=== PATIENT | male | born 2000 | race Caucasian/White ===

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

== ENCOUNTER 2022-08-09 23:13 | Emergency (ER) | payer MEDICAID ==
[2022-08-09] MEDS ORDERED: XYLOCAINE 1% HCL 20 ML MDV IJ ONE (23:14)
[2022-08-10 00:55] VITALS: O2SAT 98
[2022-08-10] MEDS ORDERED: TORAdol 30 mg Injection IM ONE (01:04)
[2022-08-10] MEDS ORDERED: Rocephin 1000 MG INJ IM ONE (01:06)
[2022-08-10] MEDS ORDERED: TORAdol 30 mg Injection ONE (01:06)
[2022-08-10] MEDS ORDERED: Rocephin 1000 MG INJ ONE (01:06)
--- NOTE | 2022-08-10 01:10 | ERPHSYRPT ---
- History of Present Illness Source: patient Exam Limitations: no limitations Patient Subjective Stated Complaint: pt states he woke up at 0400 yesterday wth throbbing left ear pain. has steadily gotten worse Triage Nursing Assessment: pt is alert and oriented, able to answer questions appropriatly, states he is havign triouble hearing out of left ear due to swelling. Physician History: 22 yo M w L otalgia since 4AM. Pain is severe. He denies trauma/fever/coryza/cough/N/V/diarrhea. Timing/Duration: abrupt onset ENT Location: ear (L) Prearrival Treatment: no prearrival treatment Modifying Factors: Improves With: nothing Associated Symptoms: denies symptoms, ear pain (L) Allergies/Adverse Reactions: No Known Drug Allergies Allergy (Verified 02/26/18 19:41) Hx Tetanus, Diphtheria Vaccination/Date Given: Yes Hx Influenza Vaccination/Date Given: No Hx Pneumococcal Vaccination/Date Given: No Travel Risk - International Travel Have you traveled outside of the country in past 3 weeks: No - Coronavirus Screening Are you exhibiting any of the following symptoms?: No Close contact with a COVID-19 positive Pt in past 14-21 Days: No - Vaccine Status Have you recieved a Covid-19 vaccination: No - Review of Systems Constitutional: No Symptoms Eyes: No Symptoms Ears, Nose, & Throat: No Symptoms, Ear Pain Respiratory: No Symptoms Cardiac: No Symptoms Abdominal/Gastrointestinal: No Symptoms Genitourinary Symptoms: No Symptoms Musculoskeletal: No Symptoms Skin: No Symptoms Neurological: No Symptoms Psychological: No Symptoms Endocrine: No Symptoms Hematologic/Lymphatic: No Symptoms Immunological/Allergic: No Symptoms - Past Medical History Pertinent Past Medical History: No - Past Surgical History Past Surgical History: Yes - Social History Smoking Status: Never smoker Exposure to second hand smoke: No Drug Use: none Patient Lives Alone: No - Nursing Vital Signs Nursing Vital Signs: Initial Vital Signs Temperature 98.7 F 08/10/22 00:48 Pulse Rate 85 08/10/22 00:48 Respiratory Rate 18 08/10/22 00:48 Blood Pressure 167/101 08/10/22 00:48 O2 Sat by Pulse Oximetry 98 08/10/22 00:48 Pain Scale Pain Intensity 9 Hypertensive - Physical Exam General Appearance: no apparent distress Eye Exam: bilateral eye: normal inspection, PERRL, EOMI Ear Exam: left ear: swelling ([place] edematous and erythematous), TM red Nasal Exam: normal inspection Throat Exam: normal, pharynx normal Neck Exam: normal inspection, non-tender, supple, full range of motion, trachea midline, No Brudzinski's sign, No Kernig's sign Cardiovascular/Respiratory Exam: normal breath sounds, regular rate/rhythm, heart sounds normal Abdominal Exam: non-tender, soft Neurologic Exam: alert, oriented x 3, cooperative, structural draftsman II-XII nml as tested, normal mood/affect, nml cerebellar function, nml station & gait, sensation nml Skin Exam: normal color, warm, dry SpO2 Interpretation: normal SpO2: 98 O2 Delivery: Room Air - Course Nursing assessment & vital signs reviewed: Yes Ordered Tests: Medication Summary Discontinued Medications Generic Name Dose Route Start Last Admin Trade Name Davidq PRN Reason Stop Dose Admin Ceftriaxone Sodium 1,000 mg 08/10/22 01:06 08/10/22 01:16 Ceftriaxone Sodium 1000 Mg Inj Vial IM 08/10/22 01:07 1,000 mg STAT ONE Administration Ceftriaxone Sodium Confirm 08/10/22 01:06 Ceftriaxone Sodium 1000 Mg Inj Vial Administered 08/10/22 01:07 Dose 1,000 mg .ROUTE .STK-MED ONE Ketorolac Tromethamine 60 mg 08/10/22 01:04 08/10/22 01:16 Ketorolac Tromethamine 30 Mg/Ml Inj IM 08/10/22 01:05 60 mg STAT ONE Administration Ketorolac Tromethamine Confirm 08/10/22 01:06 Ketorolac Tromethamine 30 Mg/Ml Inj Administered 08/10/22 01:07 Dose 60 mg .ROUTE .STK-MED ONE - Progress Progress Note: 08/10/22 01:09 Nursing note and vital signs reviewed Pt does not have health insurance or a PCP physician 1gm IM Rocephin/60mg IM Toradol Counseled pt/family regarding: diagnosis, need for follow-up Medical Desision Making - Social Determinants of Health Pt's dx & treatment plan are significantly limited by SDOH: financial hardships Limited access to: medical care - Risk of complications Minimal Risk: Minimal risk of morbidity - Departure Departure Disposition: Home Clinical Impression: Left otitis externa, Left otitis media Condition: Stable Critical Care Time: No Referrals: DOCTOR,NO FAMILY [Primary Care Provider] - Follow up/PCP as directed Instructions: Outer Ear Infection (DC), Ear Infections (Otitis Media) in Adults (DC) Additional Instructions: Motrin/Tylenol for pain Start Amoxil 500mg three times a day for 10 days Floxin otic 10 drops left ear twice a day for 7 days Follow up with your family MD Return to ER for worsening of symptoms Prescriptions: Amoxicillin 500 mg PO TID 10 Days #30 tablet Ofloxacin Otic 5 ml [Floxin Otic 5 ML] 10 drops OT BID 7 Days #5 ml
[2022-08-10 01:28] VITALS: BP 155/95; PULSE 78
== END 2022-08-10 01:29 | disposition home or self-care (01) ==
LOC: ED 23:13
DX: H66.92 Otitis media, unspecified, left ear (principal); H60.92 Unspecified otitis externa, left ear; H92.02 Otalgia, left ear; Z28.310 Unvaccinated for COVID-19; Z59.9 Problem related to housing and economic circumstances, unspecified
CPT/HCPCS: 96372; 99283; J0696; J1885